=== PATIENT | female | born 1980 ===

== ENCOUNTER 2017-11-16 11:08 | Emergency (ER) | payer OTHER ==
[2017-11-16] MEDS ORDERED: Sodium Chloride 0.9% 1,000 ML IV STA (12:49)
[2017-11-16 13:18] LABS: URINE APPEARANCE CLEAR (CLEAR); URINE BILIRUBIN NEGATIVE (NEGATIVE); URINE BLOOD LARGE (NEGATIVE); URINE COLOR YELLOW (YELLOW); URINE GLUCOSE (UA) NEGATIVE (NEGATIVE); URINE LEUKOCYTE ESTERASE NEGATIVE Leu/uL (NEGATIVE); URINE NITRATE NEGATIVE (NEGATIVE); URINE PROTEIN NEGATIVE mg/dL (<30 mg/dL); URINE UROBILINOGEN 0.2 E.U./dL (<1 E.U./dL)
[2017-11-16 13:26] LABS: BASO # 0.01 K/mm3 (0.0-2.0); BASO % 0.1 % (0.0-3.0); EOS % 0.2 % (1.5-5.0); GRAN # 8.06 (1.4-6.5); GRAN % 81.8 % (50.0-68.0); HEMOGLOBIN 12.1 g/dL (12.0-16.0); LYMPH % 10.6 % (22.0-35.0); MEAN CORPUSCULAR HEMOGLOBIN 28.6 pg (25.0-35.0); MEAN CORPUSCULAR HGB CONC 32.9 g/dl (31.0-37.0); MEAN PLATELET VOLUME 11.7 fl (7.0-11.0); MONO # 0.7 (0.1-0.6); MONO % 7.3 % (1.0-6.0); RBC 4.23 10^6/uL (3.5-6.1); RED CELL DISTRIBUTION WIDTH 13.4 % (11.5-14.5); WHITE BLOOD COUNT 9.9 10^3/ul (4.5-11.0)
[2017-11-16 13:26] LABS: URINE BACTERIA MANY (NEG); URINE RBC 25 - 30 /hpf (0-2); URINE WBC 0 - 2 /hpf (0-6)
[2017-11-16 13:39] LABS: ALB/GLOB RATIO 1.3 (1.1-1.8); ALBUMIN 4.3 g/dL (3.0-4.8); ALT/SGPT 30 U/L (7-56); AST/SGOT 23 U/L (14-36); BLOOD UREA NITROGEN 8 mg/dL (7-21); CALCIUM 9.4 mg/dL (8.4-10.5); GFR AFRICAN-AMERICAN > 60; GFR NON-AFRICAN AMERICAN > 60
--- NOTE | 2017-11-16 13:48 | ED PDOC ---
Arrival/HPI - General Chief Complaint: Flu-like Symptoms Time Seen by Provider: 11/16/17 12:40 Historian: Patient - History of Present Illness Narrative History of Present Illness (Text): 11/16/17 13:44 Patient is a 37 yo female reports 2 days ago developed body aches and fevers. States that she has had persistent cough and chills since last night. Also reports bilateral earaches with headaches. Reports sore throat with no difficulty swallowing. No abdominal pain. No vomiting or diarrhea. Denies stiff neck. Time/Duration: Prior to Arrival Symptom Onset: Gradual Past Medical History - Infectious Disease Hx of Infectious Diseases: None - Cardiac Hx Hypertension: Yes - Psychiatric Hx Substance Use: No - Surgical History Hx Cholecystectomy: Yes Other/Comment: Sinus Surgery Family/Social History Family/Social History: Unknown Family HX Smoking Status: Never Smoked Hx Alcohol Use: No Hx Substance Use: No Allergies/Home Meds Allergies/Adverse Reactions: Allergies No Known Allergies Allergy (Verified 11/16/17 11:42) Home Medications: Home Meds Medication Instructions Recorded Confirmed Hydrochlorothiazide [Microzide] 1 tab PO DAILY 11/16/17 11/16/17 Metoprolol Succinate [Toprol XL] 25 mg PO DAILY 11/16/17 11/16/17 Review of Systems - Review of Systems Constitutional: Fatigue, Fevers Eyes: absent: Vision Changes ENT: Sore Throat, Rhinorrhea, Sinus Congestion. absent: Hearing Changes, Voice Changes Respiratory: SOB. absent: Sputum, Wheezing Cardiovascular: absent: Chest Pain, Palpitations, PATE Gastrointestinal: Appetite Changes. absent: Abdominal Pain, Nausea, Vomiting Genitourinary Female: absent: Dysuria, Frequency, Hematuria Musculoskeletal: Myalgias. absent: Back Pain, Neck Pain Skin: absent: Rash, Cellulitis Neurological: Headache. absent: Dizziness, Focal Weakness Endocrine: absent: Polyuria Hemo/Lymphatic: absent: Easy Bleeding Psychiatric: absent: Depression Physical Exam Vital Signs Reviewed: Yes Vital Signs Temp Pulse Resp BP Pulse Ox 11/16/17 15:57 98.0 F 84 18 124/73 99 11/16/17 13:58 97.8 F 88 16 128/78 99 11/16/17 12:57 98.3 F 11/16/17 11:40 101.1 F H 91 H 18 124/86 100 Temperature: Febrile Respiratory Rate: Tachypneic Appearance: Positive for: Non-Toxic Pain Distress: Mild Mental Status: Positive for: Alert and Oriented X 3 - Systems Exam Head: Present: Atraumatic Pupils: Present: PERRL Extroacular Muscles: Present: EOMI Conjunctiva: No: Injected Ears: Present: TM Bulging. No: Erythema, TM Perf Mouth: Present: Moist Mucous Membranes Pharnyx: No: ERYTHEMA, EXUDATE, TONSILS ENLARGED, Strider Nose (Internal): Present: Normal Inspection, No Active Bleeding Neck: Present: Normal Range of Motion. No: Meningeal Signs, MIDLINE TENDERNESS Respiratory/Chest: Present: Clear to Auscultation, Respiratory Distress Cardiovascular: Present: Tachycardic. No: Murmurs Abdomen: No: Tenderness, Distention Rectal: No: Rectal Tenderness Breast/Axillary: No: Erythema Back: No: CVA Tenderness Upper Extremity: No: Cyanosis, Edema Lower Extremity: Present: NORMAL PULSES. No: Edema Neurological: Present: Motor Func Grossly Intact, Normal Sensory Function Skin: Present: Warm Psychiatric: Present: Alert, Normal Insight, Normal Concentration Medical Decision Making ED Course and Treatment: 11/16/17 13:47 Patient on examination is febrile. Abdomen soft and nontender. No wheezing or hypoxia or respiratory distress noted. NO oral lesions although mucous membranes dry. No meningeal signs. Suspect influenza, precautions taken and provided. Fever improved after mediation. On re-exam, no meningeal signs. Will d/c with Tamilflu, but also Augmentin for possible component of sinusitis/ otitis. On re-exam, afebrile, no meningeal signs, no rash, nontoxic appearing. She complains of right sided frontal headache. No focal neuro deficits or meningeal signs. Report Date : 11/16/2017 15:17:20 PROCEDURE: CT HEAD WITHOUT CONTRAST. Dictator : Spencer Bailon MD IMPRESSION: No acute finding Reglan given, headache resolved. Will d/c with f/u pmd recommended. 11/18/17 16:39 - Lab Interpretations Lab Results: 11/16/17 13:15 11/16/17 13:15 Lab Results 11/16/17 13:15: Sodium 140, Potassium 3.9, Chloride 102, Carbon Dioxide 26, Anion Gap 15, BUN 8, Creatinine 0.7, Est GFR ( Amer) > 60, Est GFR (Non- Af Amer) > 60, Random Glucose 112 H, Calcium 9.4, Total Bilirubin 0.2, AST 23, ALT 30, Alkaline Phosphatase 60, Total Protein 7.7, Albumin 4.3, Globulin 3.4, Albumin/Globulin Ratio 1.3 11/16/17 13:15: Influenza Typ A,B (EIA) Negative for flu a/b 11/16/17 13:15: WBC 9.9, RBC 4.23, Hgb 12.1, Hct 36.8, MCV 87.0, MCH 28.6, MCHC 32.9, RDW 13.4, Plt Count 197, MPV 11.7 H, Gran % 81.8 H, Lymph % (Auto) 10.6 L , Richardson % (Auto) 7.3 H, Eos % (Auto) 0.2 L, Baso % (Auto) 0.1, Gran # 8.06 H, Lymph # 1.0 L, Richardson # 0.7 H, Eos # 0.0, Baso # 0.01 11/16/17 12:50: Urine Color Yellow, Urine Appearance Clear, Urine pH 6.0, Ur Specific [place] 1.010, Urine Protein Negative, Urine Glucose (UA) Negative, Urine Ketones Negative, Urine Blood Large H, Urine Nitrate Negative, Urine Bilirubin Negative, Urine Urobilinogen 0.2, Ur Leukocyte Esterase Negative, Urine RBC 25 - 30, Urine WBC 0 - 2, Ur Epithelial Cells 4 - 5, Urine Bacteria Many - RAD Interpretation Radiology Orders: 11/16/17 14:22 HEAD W/O CONTRAST [CT] Stat - Medication Orders Current Medication Orders: Discontinued Medications Acetaminophen (Tylenol 325mg Tab) 650 mg PO ONCE STA Stop: 11/16/17 12:51 Last Admin: 11/16/17 12:57 Dose: 650 mg MAR Pain/Vitals Document 11/16/17 12:57 MS (Rec: 11/16/17 13:07 MS [facility] [id number]) Pain Reassessment Is This A Pain ReAssessment? Yes Sleep Is patient sleeping during reassessment? No Presence of Pain Presence of Pain Yes Pain Scale Used Pain Scale Used Numeric Location Pain Location Body Site Generalized Description Intermittent Pain Behavior Guarding Irritability Facial Grimacing Vitals Temperature (97.6 F-99.6 F) 98.3 F Temperature Source Oral Sodium Chloride (Sodium Chloride 0.9%) 1,000 mls @ 1,000 mls/hr IV .Q1H STA Stop: 11/16/17 13:48 Last Admin: 11/16/17 13:08 Dose: 1,000 mls/hr eMAR Start Stop Document 11/16/17 13:08 MS (Rec: 11/16/17 13:09 [facility] [id number] Intravenous Solution Start Date 11/16/17 Start Time 13:09 End Date 11/16/17 End time 14:09 Total Infusion Time 60 Ketorolac Tromethamine (Toradol) 15 mg IVP ONCE ONE Stop: 11/16/17 12:50 Last Admin: 11/16/17 13:08 Dose: 15 mg MAR Pain Assessment Document 11/16/17 13:08 MS (Rec: 11/16/17 13:08 MS [facility] [id number]) Pain Reassessment Is this a pain reassessment? No Sleep Is patient sleeping during reassessment? No Presence of Pain Presence of Pain Yes Pain Scale Used Pain Scale Used Numeric Location Pain Location Body Site Generalized Description Description Intermittent IVP Administration Document 11/16/17 13:08 MS (Rec: 11/16/17 13:08 MS [facility] [id number]) Charges for Administration # of IVP Administrations 1 Metoclopramide HCl (Reglan) 10 mg PO STAT STA Stop: 11/16/17 14:35 Last Admin: 11/16/17 15:17 Dose: 10 mg Disposition/Present on Arrival - Present on Arrival Any Indicators Present on Arrival: No History of DVT/PE: No History of Uncontrolled Diabetes: No Urinary Catheter: No History of Decub. Ulcer: No History Surgical Site Infection Following: None - Disposition Have Diagnosis and Disposition been Completed?: Yes Diagnosis: Influenza, Sinusitis Disposition: HOME/ ROUTINE Disposition Time: 13:48 Patient Plan: Discharge Condition: GOOD Discharge Instructions (ExitCare): Sinusitis (ED), Influenza (ED) Additional Instructions: Rest. Drink fluids. For any return or persistence of fever, any stiff neck, any abdominal pain, any chest pain, any rash, any persistence or worsening of ANY symptoms, get rechecked. Follow-up with your physician in 1-2 days for re-evaluation. Prescriptions: Amoxicillin/Clavulanate [Augmentin 875 MG-125 MG] 1 tab PO BID #20 tab Oseltamivir Phosphate [Tamiflu] 75 mg PO BID #10 capsule Referrals: Mike Reyna MD [Primary Care Provider] - Follow up with primary Forms: [employer] ([place]akut), WORK NOTE
[2017-11-16 13:59] VITALS: O2SAT 99
--- NOTE | 2017-11-16 15:19 | CT ---
PROCEDURE: CT HEAD WITHOUT CONTRAST. HISTORY: right sided headache COMPARISON: None available. TECHNIQUE: Axial computed tomography images were obtained through the head/brain without intravenous contrast. Radiation dose: Total exam DLP = 768 mGy-cm. This CT exam was performed using one or more of the following dose reduction techniques: Automated exposure control, adjustment of the mA and/or kV according to patient size, and/or use of iterative reconstruction technique. FINDINGS: HEMORRHAGE: No intracranial hemorrhage. BRAIN: No mass effect or edema. No atrophy or chronic microvascular ischemic changes. VENTRICLES: Unremarkable. No hydrocephalus. CALVARIUM: Unremarkable. PARANASAL SINUSES: Unremarkable as visualized. No significant inflammatory changes. MASTOID AIR CELLS: Unremarkable as visualized. No inflammatory changes. OTHER FINDINGS: None. IMPRESSION: No acute finding
[2017-11-16 15:58] VITALS: BP 124/73; PULSE 84; RESP 18; TEMP 98
== END 2017-11-16 16:01 | disposition home or self-care (01) ==
LOC: ED 11:08
DX: J11.1 Influenza due to unidentified influenza virus with other respiratory manifestations (principal); J32.9 Chronic sinusitis, unspecified; I10 Essential (primary) hypertension
CPT/HCPCS: 70450; 80053; 81001; 85025; 87804; 96361; 96374; 99284; J1885; J7040